=== PATIENT | male | born 1965 | race Caucasian/White ===

== ENCOUNTER 2022-12-27 01:01 | Emergency (ER) | payer MEDICARE, SELFPAY ==
--- NOTE | 2022-12-27 01:05 | XRR_ITS ---
PROCEDURE INFORMATION: Exam: XR Chest Exam date and time: 12/27/2022 1:17 AM Age: 57 years old Clinical indication: Chest pressure; Patient HX: C/O chest pain. Chronic hypertension. ; Additional info: Cp TECHNIQUE: Imaging protocol: Radiologic exam of the chest. Views: 1 view. COMPARISON: 1. CR XR chest 1V [id number] 2018-12-22 03:[address] neck w con* [id number] 2017-06-15 14:38 FINDINGS: Lungs: Left lower lung atelectasis moderately improved. Pleural spaces: Unremarkable. No pleural effusion. No pneumothorax. Heart/Mediastinum: Unremarkable. No cardiomegaly. Bones/joints: Unremarkable. XR/XR chest 1V portable [id number] IMPRESSION: No acute findings.
--- NOTE | 2022-12-27 01:11 | ECG_ITS ---
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 Measurements Intervals [place] Rate: 51 P: 53 OK: 171 QRS: 29 QRSD: 113 T: 30 QT: 419 QTc: 387 Interpretive Statements SINUS BRADYCARDIA MODERATE INTRAVENTRICULAR CONDUCTION DELAY [105+ ms QRS DURATION, 80+ ms Q/S IN V1/V2, NO Q AND 60+ ms R IN I/aVL/V5/V6] NONSPECIFIC T-WAVE ABNORMALITY Compared to ECG 12/22/2018 02:23:08 T-wave abnormality now present Sinus rhythm no longer present Electronically Signed On 12-27-2022 17:38:01 INTERNAL AFFAIRS COMMANDER by Drake Forman M.D. [email or web address] [email or web address] regional medical centerZeenshareblanch[facility].[place]/store/OM/[id number]
[2022-12-27 01:13] VITALS: BP 156/92; PULSE 53; RESP 18; TEMP 36.5; O2SAT 97; BMI 30.2
--- NOTE | 2022-12-27 01:19 | W.ED.CHESTPA ---
HPI - Chest Pain General: Chief Complaint: Chest Pain Stated Complaint: Chest Pains Time Seen by Provider: 12/27/22 01:06 Source: patient Mode of arrival: ambulatory Limitations: no limitations History of Present Illness: 57-year-old male states has been having chest pain since 9 PM. He states the pain is a pressure type pain service she has had some dyspnea he states pain is since resolved he has a history of high blood pressure he is a smoker he denies any vomiting or diarrhea. Denies any cough or shortness of breath. Associated symptoms: Deny abdominal pain, dyspnea, fever(s), nausea or vomiting Review of Systems Const: Denies: fever(s), chills, body aches or change in appetite Eyes: Denies: blurry vision or eye discomfort ENMT: Denies: throat pain or dental pain Card: Reports: chest pain Resp: Denies: dyspnea GI: Denies: abdominal pain, nausea, vomiting or diarrhea : Denies: dysuria Musc: Denies: neck pain or back pain Skin/Breast: Denies: rash Neuro: Denies: headache(s) Psych: Denies: depression Judd/Lymph: Denies: easy bruising All/Imm: Denies: urticaria PFSH ED PFSH: Medical History Depression GERD (gastroesophageal reflux disease) HTN (hypertension) Smoker Family History Father CAD (coronary artery disease) Mother CAD (coronary artery disease), Onset Age: 71 stents Social History Smoking and tobacco status: current every day smoker (1.5 ppd) cigarettes Packs smoked per day: 1 Years cigarettes smoked: 45 Quit status (tobacco): has tried quititng Number of times tried to quit tobacco: 1 Physical Exam Const: COMMON NORMALS: no acute distress, patient oriented x3 and healthy appearing HENMT: COMMON NORMALS: normocephalic and atraumatic HEAD & SCALP: normocephalic and atraumatic Eye: COMMON NORMALS: Equal, round and reactive pupils present and EOMs intact bilaterally PUPIL: Yes Equal, round and reactive pupils present Neck/C-Spine: COMMON NORMALS: full ROM and supple Chest: COMMONS NORMALS: normal inspection of the chest and normal palpation of entire chest wall Resp: COMMON NORMALS: normal respiratory effort, No retractions, No use of accessory muscles and clear to auscultation bilaterally AUSCULTATION: clear to auscultation bilaterally Cardio: COMMON NORMALS: regular rate, regular rhythm and No murmurs present (Cardio) RATE: regular rate RHYTHM: regular rhythm GI: COMMON NORMALS: Normal to inspection, nondistended, normoactive bowel sounds present, Soft to palpation, non-tender and no masses PALPATION: Yes Soft to palpation Extremity: COMMON NORMALS: normal to inspection and full ROM Neuro: COMMON NORMALS: patient oriented x3, moves all extremities and no focal motor deficits Psych: COMMON NORMALS: mental status grossly normal, Normal thought process present and cooperative THOUGHT PROCESS: Normal thought process present Skin: COMMON NORMALS: no rashes or lesions noted and no wounds GENERAL SKIN EXAM: no rashes or lesions noted Course Vital Signs: Vital signs: Vital Signs Temperature 97.7 F 12/27/22 01:13 Pulse Rate 53 L 12/27/22 01:13 Respiratory Rate 18 12/27/22 01:13 Blood Pressure 156/92 12/27/22 01:13 Pulse Oximetry 97 12/27/22 01:13 Oxygen Delivery Me thod 12/27/22 01:13 MDM - Chest Pain Medical Decision Making Patient presents for chest pains atypical in nature his pain has been resolved here initial and repeat troponins are normal he has no signs of acute coronary syndrome or pulm embolism he is to follow-up his PCP and return if worsening he understands agrees to plan. Lab Data 12/27/22 01:18 12/27/22 01:18 Radiology Impressions Chest X-Ray 12/27/22 01:05 IMPRESSION: No acute findings. Laboratory Results WBC 6.0 10^3/uL (4.0-10.0) 12/27/22 01:18 RBC 5.10 10^6/uL (4.1-5.3) 12/27/22 01:18 Hgb 15.6 g/dL (11.7-16.6) 12/27/22 01:18 Hct 46.4 % (42.0-52.0) 12/27/22 01:18 MCV 91.0 fl (80-94) 12/27/22 01:18 MCH 30.6 pg (28.0-34.0) 12/27/22 01:18 MCHC 33.6 g/dL (30.0-36.0) 12/27/22 01:18 RDW 12.1 % (12.1-15.1) 12/27/22 01:18 Plt Count 250 10^3/cmm (130-400) 12/27/22 01:18 MPV 9.0 fL (7.4-10.4) 12/27/22 01:18 Neut % (Auto) 59.5 % 12/27/22 01:18 Lymph % (Auto) 29.6 % 12/27/22 01:18 [place] % (Auto) 7.5 % 12/27/22 01:18 Eos % (Auto) 2.7 % 12/27/22 01:18 Baso % (Auto) 0.5 % 12/27/22 01:18 Neut # (Auto) 3.55 10^3/uL (1.8-7.7) 12/27/22 01:18 Lymph # (Auto) 1.8 10^3/uL (0.8-4.8) 12/27/22 01:18 [place] # (Auto) 0.5 10^3/uL (0.2-0.9) 12/27/22 01:18 Eos # (Auto) 0.2 10^3/uL (0.0-0.8) 12/27/22 01:18 Baso # (Auto) 0.0 10^3/uL (0.0-0.1) 12/27/22 01:18 Nucleated RBC % (auto) 0 % 12/27/22 01:18 Nucleated RBCs # 0.0 /100WBC 12/27/22 01:18 Sodium 140 mmol/L (136-145) 12/27/22 01:18 Potassium 4.1 mmol/L (3.5-5.1) 12/27/22 01:18 Chloride 105 mmol/L (98-107) 12/27/22 01:18 Carbon Dioxide 24 mmol/L (22-29) 12/27/22 01:18 Anion Gap 15.1 (5-19) 12/27/22 01:18 BUN 12 mg/dL (6-20) 12/27/22 01:18 Creatinine 1.1 mg/dL (0.7-1.2) 12/27/22 01:18 GFR Calculation 68.8 mL/min (90-130) L 12/27/22 01:18 Glucose 89 mg/dL (65-115) 12/27/22 01:18 Calculated Osmolality 289 mOsm/kg (285-295) 12/27/22 01:18 Calcium 8.8 mg/dL (8.5-10.5) 12/27/22 01:18 Total Bilirubin 1.1 mg/dL (0.15-1.2) 12/27/22 01:18 AST 22 U/L (0-40) 12/27/22 01:18 ALT 15 U/L (0-41) 12/27/22 01:18 Alkaline Phosphatase 98 U/L (40-130) 12/27/22 01:18 Troponin T Baseline 8 ng/L (0-15) 12/27/22 01:18 Troponin T 120 Minute 7.36 ng/L (0-15) 12/27/22 02:57 Total Protein 6.5 g/dL (6.6-8.7) L 12/27/22 01:18 Albumin 4.1 g/dL (3.5-5.2) 12/27/22 01:18 Globulin 2.4 g/dL (1.3-4.6) 12/27/22 01:18 EKG Data EKG 1: I personally reviewed and interpreted this EKG as follows: EKG interpretation date: 12/27/22 EKG interpretation time: 01:11 Interpretation: sinus clarke hr [address] or t wave abnormalities qrs 113 qtc 395 Discharge Plan Discharge Patient Disposition: Home Clinical Impression: Chest pain Condition: Stable Prescriptions: No Action dexamethasone [Decadron] 6 mg tablet 6 mg PO DAILY 7 Days Qty: 7 0RF Discharge Orders: Discharge ED (Routine); Ordered 12/27/22 Ordered By: Grace Moncaad Discharge Diet: Advance as tolerated Discharge Activity: Resume usual activity Patient Instructions: Chest Pain (ED) Coding Level of Care Code ED National Dedicated Truck Driver for Leslie Caro
[2022-12-27 01:29] LABS: Basophils % 0.5 %; Eosinophils # 0.2 10^3/uL (0.0-0.8); Eosinophils % 2.7 %; Hematocrit 46.4 % (42.0-52.0); Hemoglobin 15.6 g/dL (11.7-16.6); Lymphocytes # 1.8 10^3/uL (0.8-4.8); Lymphocytes % 29.6 %; Mean Corpuscular HGB Conc 33.6 g/dL (30.0-36.0); Mean Corpuscular Hemoglobin 30.6 pg (28.0-34.0); Monocytes # 0.5 10^3/uL (0.2-0.9); Monocytes % 7.5 %; Neutrophils # 3.55 10^3/uL (1.8-7.7); Neutrophils % 59.5 %; Nucleated Red Blood Cells % 0 %; Platelet Count 250 10^3/cmm (130-400); Red Cell Distribution Width 12.1 % (12.1-15.1)
[2022-12-27 01:46] LABS: Alanine Aminotransferase 15 U/L (0-41); Albumin Level 4.1 g/dL (3.5-5.2); Alkaline Phosphatase 98 U/L (40-130); Aspartate Amino Transferase 22 U/L (0-40); Blood Urea Nitrogen 12 mg/dL (6-20); Calcium 8.8 mg/dL (8.5-10.5); Carbon Dioxide 24 mmol/L (22-29); Chloride 105 mmol/L (98-107); Globulin 2.4 g/dL (1.3-4.6); Glomerular Filtration Rate 68.8 mL/min (90-130); Glucose 89 mg/dL (65-115); Osmolality Calculated 289 mOsm/kg (285-295); Sodium 140 mmol/L (136-145); Total Bilirubin 1.1 mg/dL (0.15-1.2); Total Protein 6.5 g/dL (6.6-8.7)
[2022-12-27 01:48] LABS: Troponin(5th) Baseline 8 ng/L (0-15)
[2022-12-27 01:49] LABS: Anion Gap 15.1 (5-19); Potassium 4.1 mmol/L (3.5-5.1)
[2022-12-27] MEDS: aspirin 81 mg Chew Tablet 324 MG PO (02:05)
--- NOTE | 2022-12-27 03:05 | ECG_ITS ---
[facility] Test Date: 2022-12-27 Pat Name: Laureano Brooks Department: Room: Gender: Male Meal Cook: : 1965 Requested By: Grace Moncada Order Number: [id number] Danica MD: Drake Forman M.D. Measurements Intervals [place] Rate: 46 P: 52 ID: [id number] QRS: 34 QRSD: 122 T: 6 QT: 438 QTc: 384 Interpretive Statements SINUS BRADYCARDIA MODERATE INTRAVENTRICULAR CONDUCTION DELAY [110+ ms QRS DURATION] NONSPECIFIC T-WAVE ABNORMALITY Compared to ECG 12/22/2018 02:23:08 T-wave abnormality now present Sinus rhythm no longer present Electronically Signed On 12-27-2022 17:40:42 CASH GRAIN FARMER by Drake Forman M.D. [id number]
[2022-12-27 03:32] LABS: Troponin 5 2HR 7.36 ng/L (0-15)
[2022-12-27 03:35] VITALS: BP 118/70; PULSE 45; RESP 16; O2SAT 98
[2022-12-27 03:48] LABS: Troponin 5 2HR Delta -0.64 ABS# (0-10)
== END 2022-12-27 03:41 | disposition home or self-care (01) ==
PROVIDERS: Emergency Provider Emergency Medicine
DX: R07.9 Chest pain, unspecified (principal); I10 Essential (primary) hypertension; F17.210 Nicotine dependence, cigarettes, uncomplicated
CPT/HCPCS: 71045; 80053; 84484; 85025; 93005; 99285

== ENCOUNTER → 2025-10-16 08:55 | Outpatient (BNVA) | payer MEDICARE, MEDICAID, SELFPAY | PROVIDERS: Visit Provider Internal Medicine Cardiovascular Disease | DX: R00.1 Bradycardia, unspecified (principal); I10 Essential (primary) hypertension; R00.2 Palpitations; I95.1 Orthostatic hypotension; F17.210 Nicotine dependence, cigarettes, uncomplicated | CPT/HCPCS: 99204 ==